=== PATIENT | female | born 1965 | race Caucasian/White ===

== ENCOUNTER 2021-05-07 18:14 | Emergency (ER) | payer OTHER ==
[~2021-05-07] VITALS: Ht 167.6 cm; Wt 63.5 kg
[2021-05-07 18:33] VITALS: BP_SYST 132
[2021-05-07] MEDS ORDERED: IBUP-1969 PO (20:03)
[2021-05-07] MEDS ORDERED: IBUPROFEN 600 MG TABLET PO ONE (20:15)
[2021-05-07 20:27] VITALS: BP_SYST 126
== END 2021-05-07 20:27 | disposition home or self-care (01) ==
LOC: SED 18:14
DX: S61.012A Laceration without foreign body of left thumb without damage to nail, initial encounter (principal); Z79.899 Other long term (current) drug therapy; W26.0XXA Contact with knife, initial encounter; Y93.89 Activity, other specified; Y92.89 Other specified places as the place of occurrence of the external cause; Y99.8 Other external cause status
CPT/HCPCS: 99282